=== PATIENT | male | born 1945 | race Caucasian/White ===

== ENCOUNTER 2016-06-22 00:07 | Inpatient (IN) | payer MEDICARE ==
[2016-06-15 10:45] VITALS: BP 144/96; PULSE 60; RESP 16; O2SAT 98
[2016-06-22] VITALS (15 sets, daily range): BP systolic 141–180; BP diastolic 72–115; PULSE 60–61; RESP 12–21; O2SAT 95–100
[~2016-06-22] VITALS: Ht 188 cm; Wt 103.3 kg
[~2016-06-22 00:07] MED LIST: ASPI325T32 PO; ATOR20TA PO; CHOL10008 PO; FLEC100T2 PO; FURO-128 PO; GLUC100020 PO; LOSA50TA3 PO; METO-274 PO; MULT1CAP33 PO; OMEG1000 PO; SAW/1TAB2 PO
[2016-06-22] MEDS ORDERED: Heparin 5,000 Units/500 mL NS Premix IV ONE ×2 (07:29→09:50)
[2016-06-22] MEDS ORDERED: Heparin 1,000 Units/500 mL NS Premix IV ONE ×2 (07:29→09:50)
[2016-06-22 09:37] LABS: BASOPHILS % (AUTO) 0.4 % (0-3); EOSINOPHILS % (AUTO) 1.5 % (0-5); MONOCYTES % (AUTO) 8.3 % (4-12); Mean Corpuscular Hemoglobin 30.2 pg (27.0-35.0); Mean Corpuscular Volume 90.7 fL (81-100); NEUTROPHILS % (AUTO) 64.3 % (40-74); Platelet Count 217 bil/L (150-400)
[2016-06-22 09:48] LABS: INR 1.02 ratio
[2016-06-22] MEDS ORDERED: fentaNYL-PF 50 mCg/mL 2 mL Inj ONE (10:19)
[2016-06-22] MEDS ORDERED: Heparin 1,000 Unit/mL 10 mL Inj ONE (10:35)
[2016-06-22] MEDS ORDERED: Nitroglycerin 50,000 mcg/250 mL D5W Premix IV ONE (10:35)
--- NOTE | 2016-06-22 12:47 | DI95 ---
[address] [address] INTERVENTIONAL CARDIAC CATHETERIZATION PATIENT: HUSSEIN DIAZ : 1945 MR#: [id number] ADMIT: 06/22/2016 JOB ID: [id number] PROCEDURE: Percutaneous intervention on the left anterior descending. INDICATION: Cardiomyopathy. HISTORICAL DETAILS: This gentleman also has history of gastrointestinal bleed. This happened when he was started on Coumadin for his AFib. INTERVENTIONAL REPORT: This gentleman had a mid LAD lesion of about 80% followed by another 60% tandem lesion further down. This was all in a diseased segment of about 30% to 40%. In view of his history of gastrointestinal bleed, I decided to give him a challenge of dual antiplatelet therapy. My initial plan was to do a bare metal stent, but given the fact that this is a disease segment and would have required either two stents or a long area of stenting, I decided to avoid putting overlapping bare metal stents which would be at high risk for restenosis. In view of this, balloon angioplasty was done initially with a 2.0 and then with a 2.5 balloon. Final angiographic results in the mid to proximal LAD were excellent. I would like to give this gentleman a challenge of dual antiplatelet therapy. If he develops gastrointestinal bleeding then his Plavix may be discontinued and he may be left on aspirin alone. Further followup with Dr. Vinson.
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
[2016-06-22] MEDS ORDERED: Ondansetron 2 mg/mL 2 mL Inj IVPUSH PRN (14:10)
[2016-06-22] MEDS ORDERED: MeTOProlol XL 50 mg ER24 Tablet PO ONE (18:00)
[2016-06-23] VITALS (7 sets, daily range): BP systolic 128–174; BP diastolic 73–100; PULSE 58–64; RESP 16–20; O2SAT 95–99
--- NOTE | 2016-06-23 15:01 | PROG NOTE ---
[address] [address] PROGRESS NOTE PATIENT: HUSSEIN DIAZ : 1945 MR#: [id number] ADMIT: 06/22/2016 JOB ID: [id number] DATE: 06/23/2016 SUBJECTIVE: The patient has no complaints this morning. He is tolerating dual antiplatelet therapy without overt bleeding. He is tolerating sotalol with no dysrhythmia and his QT interval duration corrected for rate is stable. OBJECTIVE: Vital signs: Temperature 36.5, blood pressure 128/73 up to 172/95. His pulse is 58 up to 60 beats per minute. He is satting 99% on room air. Well-nourished man, in no apparent distress. Eyes: No scleral icterus. Right eye is blind. Heart: Normal S1, S2. No murmurs. Lungs: Clear to auscultation anteriorly. Abdomen: Soft, positive bowel sounds. No hepatosplenomegaly. Extremities: Warm, well perfused. No clubbing, cyanosis or edema. Skin: No rashes or lesions. CURRENT MEDICATIONS: 1. Losartan 100 mg daily. 2. Aspirin 325 mg daily. 3. Plavix 75 mg daily. 4. Lipitor 20 mg daily. 5. Lasix 40 mg daily. 6. Sotalol 80 mg twice a day. ASSESSMENT AND PLAN: This is a delightful 71-year-old man with history of GI bleed. His has a history of balloon angioplasty yesterday and he is admitted for sotalol load. Flecainide is no longer useful for AFib prevention because of coronary artery disease. He has already received two doses of sotalol and I plan to discharge him on Saturday after his morning dose. If his QT interval corrected for rate remains stable as an outpatient, will organize for him to have a colonoscopy to workup his gastrointestinal bleeding. Plavix and aspirin can be held in anticipation of colonoscopy, and if it turns out that he has no significant lower GI source of bleeding, then we can offer him stenting and dual antiplatelet therapy since his GI bleeding in hindsight probably was hemorrhoid related. Thank you very much for the opportunity to participate in this patient's care.
[2016-06-24] VITALS (10 sets, daily range): BP systolic 118–149; BP diastolic 72–87; PULSE 60–90; RESP 16–20; O2SAT 96–99
[2016-06-24] MEDS: MeTOProlol XL 50 mg ER24 Tablet PO SCH (12:04)
--- NOTE | 2016-06-24 15:13 | PROG NOTE ---
[address] [address] PROGRESS NOTE PATIENT: HUSSEIN DIAZ : 1945 MR#: [id number] ADMIT: 06/22/2016 JOB ID: [id number] DATE: 06/24/2016 CHIEF COMPLAINT: Dizziness. SUBJECTIVE: This morning, the patient had an episode of bizarre behavior where he felt disoriented and started walking out. Then he remembered where he was and went back to his room, and this morning also at 1 a.m. he went into AFib with controlled rate. Labs are ordered and are pending. CURRENT MEDICATIONS: 1. Aspirin 325 mg daily. 2. Toprol-XL 50 mg daily. 3. Sotalol 80 mg twice a day. 4. Amlodipine 5 mg daily. 5. Losartan 100 mg daily. 6. Lasix 40 mg daily. 7. Aspirin 325 mg daily. 8. Plavix 75 mg daily. 9. Lipitor 20 mg daily. PHYSICAL EXAMINATION: Very pleasant, elderly man, no apparent distress. Eyes: No scleral icterus. Neck supple. No lymphadenopathy. No carotid bruits. Heart: Normal S1, S2. No murmurs. Lungs: Clear to auscultation anteriorly. Abdomen soft, positive bowel sounds. No hepatosplenomegaly. Labs orders and are pending. Tele shows AFib with cycle length ranging from 470 msec to 700 msec, so his rate fluctuates between 84 beats per minute up to 127 beats per minute. The patient denies shortness of breath but had an episode of disorientation earlier. He is not on anticoagulation because he had bright red blood per rectum in the past but not recently. He is on dual antiplatelet therapy given recent balloon angioplasty. The patient's CHADS2 VASc score is 4, with points for hypertension, cardiomyopathy, age over 65, and peripheral arterial disease. The plan for this patient is to check his labs to understand what is triggering his event. Will start him on Lovenox shots 100 mg subcu q.12 h., see how he does. Will monitor him closely since he is on dual antiplatelet therapy. Thank you very much for the opportunity to evaluate him.
[2016-06-24 15:23] LABS: Mean Corpuscular Hemoglobin 30.2 pg (27.0-35.0); Mean Corpuscular Volume 90.7 fL (81-100)
[2016-06-24 15:46] LABS: Magnesium 2.2 mg/dL (1.6-2.6)
[2016-06-25] VITALS (8 sets, daily range): BP systolic 119–135; BP diastolic 83–95; PULSE 60–96; RESP 16–20; O2SAT 96–100
--- NOTE | 2016-06-25 06:59 | CS94 ---
[address] [address] DIAGNOSTIC CARDIAC CATHETERIZATION PATIENT: HUSSEIN DIAZ : 1945 MR#: [id number] ADMIT: 06/22/2016 JOB ID: [id number] SERVICE DATE: 06/22/2016 CHIEF COMPLAINT: Shortness of breath. PATIENT PRESENTATION: The patient is a delightful 71-year-old man with paroxysmal atrial fibrillation, relatively reassuring stress test with what to me looks like diaphragmatic attenuation. However, since his pacemaker implant, he developed worsening cardiomyopathy, and he has been referred for cardiac catheterization. PROCEDURE: Following informed consent, patient was prepped and draped in usual sterile fashion. A 6-Maltese sheath was placed in right common femoral artery. Sheath placement was confirmed via femoral angiogram. JL4 and JR4 catheters were used to engage left main and right coronary artery ostia, respectively. Hand injection craniocaudal angulation was used to obtain selective coronary angiograms. All exchanges were performed over a wire. JR4 catheter was advanced to the left ventricle. Left ventricular end-diastolic pressure was recorded. Ventriculogram was deferred by intention to conserve contrast. Then, it was withdrawn into the aorta under continuous hemodynamic monitoring. FINDINGS: Left main is a normal caliber vessel. It gives rise to LAD and circumflex. No obstructive lesions are seen. It gives rise to LAD and circumflex LAD is a normal caliber vessel which gives rise to big bifurcating first diagonal branch, medium second diagonal branch, medium-sized third diagonal branch, small fourth and fifth diagonal branches. There is an 80% mid LAD lesion care home between first and second diagonal branch. Circumflex is a codominant vessel which gives rise to a week very proximal first obtuse marginal branch, very small second obtuse marginal branch, medium third and fourth obtuse marginal branches. No obstructive lesions are seen. Right coronary artery is a medium caliber vessel which gives rise to PDA and posterior lateral branch. No obstructive lesions are seen. Ventriculogram was deferred by intention to conserve contrast. IMPRESSION: 1. 80% mLAD lesion half way between D1 and D2 2. otherwise no significant lesions PLAN: POBA to LAD (prefer not to deploy stent if possible given h/o GIB on OAC) MTDD
[2016-06-25] MEDS: MeTOProlol XL 50 mg ER24 Tablet PO SCH (08:39)
[2016-06-25] MEDS ORDERED: Furosemide 10 mg/mL 4 mL Inj IVPUSH ONE (11:00)
[2016-06-25] MEDS ORDERED: PEG/Electrolytes 4,000 mL Solution PO ONE (12:20)
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
--- NOTE | 2016-06-25 14:07 | PROG NOTE ---
[address] [address] PROGRESS NOTE PATIENT: HUSSEIN DIAZ : 1945 MR#: [id number] ADMIT: 06/22/2016 JOB ID: [id number] DATE: 06/25/2016 CHIEF COMPLAINT: Shortness of breath. SUBJECTIVE: This morning patient reports shortness of breath is stable: He denies pain at the right common femoral artery vascular access site. He does not have any bruit and he has small ecchymosis but no palpable hematoma. Labs reviewed. Vital signs: Temperature 36.4, blood pressure 190/83, 131/92, He has been mostly in AFib but sometimes with RVR at about 110 beats per minute. Satting 98% to 100% on room air. Eyes: No scleral icterus. Heart: Normal S1, S2. Irregularly irregular. No murmurs. Lungs: Clear. Anterior abdomen is soft, positive bowel sounds. Extremities: Show no edema. Device check: I did a limited device check. I turned off the rate response feature while in AMS mode and it seems like the rate has not been escalating inappropriately during physical activity in that setting. ASSESSMENT AND PLAN: This is a 71-year-old man who is fairly complex and has multiple cardiovascular conditions includin. Paroxysmal atrial fibrillation. 2. Sick sinus syndrome, status post [employer] dual chamber ppm 3. Management has been complicated by bright red blood per rectum, on Eliquis. The patient believes it is related to hemorrhoidal bleeding, but he expressed to me that the amount of blood was significant and he was afraid to continue using his medication. 4. Cardiomyopathy. Cardiomyopathy was recent identified. Echo was normal in 2013, and most recent ejection fraction was 30% to 40%. 5. Coronary artery disease--newly diagnosed during this admission. Left heart cath performed on June 22, 2016. Unfortunately, it demonstrated a 80% mid LAD lesion treated with balloon angioplasty. Stent placement was deliberately deferred because I was not convinced the patient could tolerate dual antiplatelet therapy. Basically, all his treatments are on hold. Anticoagulation for stroke prevention in the setting of persistent atrial fibrillation is on hold. Cardioversion for his symptoms of shortness of breath for AFib is on hold. Treatment of his coronary artery disease is on hold, all because we are not convinced he can handle dual antiplatelet therapy and we cannot be convinced that he can handle anticoagulation. Therefore, I recommend for this patient to undergo inpatient colonoscopy to rule out significant source of gastrointestinal lower GI bleeding. The good news is that he has not had anemia and I hope we can reassure him and take away his fear and make it a safe experience for him to take anticoagulation medication. I gave signout to my partner, Dr. Moran, and he voiced understanding. I appreciate Dr. Moran expertise. If it turns out he has no significant digestive pathology, I would recommend for him to start Eliquis for stroke prevention in the setting of persistent atrial fibrillation, and depending on how he does, we can offer him ISREAL followed by cardioversion. Of course, he has not been on Eliquis as an outpatient. As far as coronary artery disease, this patient is not a good candidate for stenting because we are not convinced he can safely handle the antiplatelet therapy. I hope investigation for possible lower GI bleed pathology will shed some light on his eligibility for those medications. If there is no source for lower GI bleeding other than hemorrhoids, I would recommend for him to start aspirin as an outpatient. Will have a discussion about adding Plavix. Cardiomyopathy: Continue Toprol-XL 50 mg daily and continue losartan 100 mg daily. I gave him Lasix 40 mg IV this morning. Thank you very much for the opportunity to evaluate him. BUDDY
[2016-06-26] VITALS (7 sets, daily range): BP systolic 101–137; BP diastolic 58–86; PULSE 59–64; RESP 16; O2SAT 96–99
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
--- NOTE | 2016-06-26 08:35 | ENDO ---
[address] [address] ENDOSCOPY PROCEDURE PATIENT: HUSSEIN DIAZ : 1945 MR#: [id number] ADMIT: 06/22/2016 JOB ID: [id number] DATE: 06/26/2016 PRIMARY PROVIDER: Pollo Calix M.D. PROCEDURE: Colonoscopy with hot snare polypectomy. INDICATIONS: A 71-year-old male with multiple cardiac issues including paroxysmal atrial fibrillation with a need for possible long-term anticoagulation. He also has coronary artery disease and possible coronary intervention is pending as well. He has been experiencing hematochezia that he believes is related to hemorrhoids. On Eliquis, he would have some bleeding. He has not had any significant bleeding since converting over to aspirin. EQUIPMENT: Q-Layer 180 AL. SEDATION: Monitored anesthesia as provided by Dr. Ky Jay. COMPLICATIONS: None identified. BOWEL PREPARATION: Fair, adequate examination. PROCEDURAL INFORMATION: After the risks and benefits were explained, written and verbal informed consent was obtained. The patient was brought into the endoscopy suite and placed into the left lateral decubitus position. Sedation was achieved using the above-stated medications with the addition of oxygen via nasal cannula. A digital rectal examination was accomplished, and apart from some mild internal and external nonbleeding, nonthrombosed hemorrhoids, no other significant pathology was appreciated. The scope was introduced into the rectum and advanced under direct visualization to the cecum as identified by the appendiceal orifice and ileocecal valve. The scope was slowly withdrawn to carefully examine the mucosa for any defects or lesions. Retroflexed views were accomplished in the rectum. The colon was decompressed. The scope removed from the patient who tolerated the procedure well. FINDINGS: The patient had generous internal hemorrhoidal cushions with a couple of areas of scattered focal erythema. No active bleeding. There was no proctitis. No colitis throughout. Some scattered mild diverticulosis in the left colon. In the transverse, there was an approximately 6 mm sessile polyp removed with hot snare (magnet was placed over the patient's pacemaker for the maneuver). No other pathology was appreciated throughout. Retroflexed views within the rectum demonstrated generous internal hemorrhoidal cushions. ENDOSCOPIC DIAGNOSES: 1. Internal/external nonbleeding, nonthrombosed hemorrhoids. 2. Mild diverticulosis. 3. Small colon polyp. RECOMMENDATIONS: 1. Await histopathology. 2. At present I do not see a contraindication for coronary intervention. Should recurrent hematochezia occur, then I would recommend surgical examination for possible banding on a p.r.n. basis.
--- NOTE | 2016-06-26 10:06 | PCM.PNCARD ---
Subjective Date of service June 26, 2016 Constitutional: Denies: Sweats ENT: Denies: Ear Pain Eyes: Denies: Blurred Vision, Conjunctive Inflammation Cardiovascular: Reports: Irregular Heart Rate, Denies: Chest Pain, SOB on Exertion, SOB while laying flat Neurological: Denies: Confusion, Dizziness Endocrine: Reports: Blood Glucose Review Exam Vital Signs Vital Sign - Last Date Time Temp Pulse Resp B/P Pulse Ox O2 Delivery O2 Flow Rate FiO2 06/26/16 09:09 36.4 59 137/86 99 Room Air 06/26/16 08:26 16 Intake and Output 06/25/16 06/25/16 06/26/16 Cumulative From/Thru 15:00 23:00 07:00 06/15/16 10:45 - 06/25/16 20:22 Intake Total 700 ml 4260 ml Output Total 360 ml 6710 ml Balance 340 ml -2450 ml Intake Oral 700 ml 3860 ml IV Total 400 ml Output Urine Total 360 ml 6710 ml # Voids 1 6 # Bowel Movements 1 General: Pleasant Cooperative Skin: Warm & dry to touch Chest: Clear auscultation w/o rales/wheeze Cardiac: Regular rhythm Neurological: Alert & oriented Lab and Diagnostics Labs CBC Test 06/22/16 09:30 06/24/16 15:15 Neutrophils (%) (Auto) 64.3% (40-74) Lymphocytes (%) (Auto) 25.3% (14-46) Monocytes (%) (Auto) 8.3% (4-12) Eosinophils (%) (Auto) 1.5% (0-5) Basophils (%) (Auto) 0.4% (0-3) White Blood Count 6.7th/mm3 (3.8-10.1) Red Blood Count 5.36mil/mm3 (4.40-5.80) Hemoglobin 16.2g/dL (13.8-17.2) Hematocrit 48.6% (41.0-50.0) Mean Corpuscular Volume 90.7fL (81-100) Mean Corpuscular Hemoglobin 30.2pg (27.0-35.0) Mean Corpuscular Hemoglobin Concent 33.3% (32.0-37.0) Red Cell Distribution Width 14.2% (12.3-15.4) Platelet Count 225bil/L (150-400) CMP Test 06/24/16 15:15 Sodium Level 140mEq/L Potassium Level 4.1mEq/L Chloride Level 102mEq/L Carbon Dioxide Level 25mmol/L Blood Urea Nitrogen 21mg/dL Creatinine 1.12mg/dL Estimat Glomerular Filtration Rate 68mL/min Glucose Level 96mg/dL Calcium Level 8.8mg/dL Magnesium Level 2.2mg/dL Result Diagram: 06/24/16 1515 06/24/16 1515 12-lead ECG EKGs have shown nothing above 523 msec QTc intervals. He has intermittent afib and atrial pacing. Assessment & Plan Problems: (1) Chronic left ventricular systolic dysfunction Plan: HFrEF probably 2/2 CAD/afib with RVR. Patient is much better rate control. Patient also had PBA to the LAD with good results. Euvolemic on examination. He will need to be discharged on Toprol XL and ARB for his HF. He is also taking a loop diuretic (furosemide). These medications might need to be titrated as outpatient. He will need a repeat Echo as outpatient to re- evaluate his LVEF. Discharge meds: Sotalol 80 mg BID - needs Rx for 2 months at a local pharmacy. Toprol XL 1/2 tablet of 50 mg twice a day Atorvastatin 20 mg once at betime although he should be on at least 40 mg qhs but I will let Dr. Vinson titrate this as outpatient. Plavix 75 mg once a day - needs Rx for 2 months at a local pharmacy Losartan 100 mg once a day Amlodipine 5 mg once a day Furosemide 40 mg once a day Needs to f/u with Dr. Vinson in 3-4 weeks to decide if PCI should be pursued or DCCV if he is able to tolerate both Plavix and Eliquis. If he starts to bleed then he should stop Eliquis and continue with Plavix. Status: Chronic ICD Code: I51.9 (2) PAF (paroxysmal atrial fibrillation) Plan: Better control with sotalol on board. Toprol XL reduced since he has started taking sotalol. Patient will go on Eliquis 5 mg BID and restart Clopidogrel 75 mg once a day. I will recommend to hold off on ASA for now since he has had prior hx of rectal bleeding probably 2/2 bleeding hemorrhoids. Onset Date: 03/15/2015 Status: Chronic ICD Code: I48.0 (3) CAD (coronary artery disease) Qualifiers: Coronary Disease-Associated Artery/Lesion type: cheesh-na artery [place] vs. transplanted heart: cheesh-na heart Associated angina: with other forms of angina Qualified Code: I25.118 - Atherosclerotic heart disease of cheesh-na coronary artery with other forms of angina pectoris Plan: S/P PBA to LAD with excellent results. Typically he will need ASA/ Plavix but given his hx of bleeding, I will hold off on ASA and just have him on Plavix since he will restart taking Eliquis. Patient is also on statin and ARB for additional risk factor modification. Status: Chronic ICD Code: I25.10 (4) Hemorrhoids Status: Chronic ICD Code: K64.9 (5) SSS (sick sinus syndrome) Onset Date: 03/15/2015 Status: Acute ICD Code: I49.5 (6) Tachy-manjeet syndrome Onset Date: 03/15/2015 Status: Chronic ICD Code: I49.5 Time spent 30 minutes Raghavendra Moran MD June 26, 2016 10:06
--- NOTE | 2016-06-26 11:33 | PCM.DIMED ---
Discharge Instructions Date of Service June 26, 2016 Dates of Hospitalization June 22, 2016 at 13:37 Discharge Diagnosis Discharge Diagnosis Paroxysmal afib CAD Diet Heart Healthy Activity Other (do not lift anything heavier than 20 lbs for 3-4 days.) Call your provider Fever or Chills, Shortness of breath, Bleeding, Chest pain, Vomitting, Excessive diarrhea, Weakness (unilateral) Patient Instructions Follow-up Provider: Marlin Vinson MD Follow-up with PCP in: 1 week Raghavendra Moran MD June 26, 2016 11:33
[2016-06-26] MEDS ORDERED: LOSA100T3 PO (11:42)
[2016-06-26] MEDS ORDERED: NITR0.4T SL (11:42)
[2016-06-26] MEDS ORDERED: ATOR20TA65 PO (11:42)
[2016-06-26] MEDS ORDERED: AMLO5TAB2 PO (11:42)
[2016-06-26] MEDS ORDERED: BET80 PO (11:42)
[2016-06-26] MEDS ORDERED: METO25TA99 PO (11:42)
[2016-06-26] MEDS ORDERED: CLOP75TA28 PO (11:43)
[2016-06-26] MEDS ORDERED: APIX5TAB PO (11:43)
[2016-06-26] MEDS ORDERED: Propofol 10,000 mCg/mL 20 mL Inj ONE (13:02)
--- NOTE | 2016-06-26 16:01 | PCM.ANEP1 ---
Post Anesthesia Phase 1 PACU Phase 1 Assessment Date of Service: June 26, 2016 Vital Signs Vital Signs Date Time Temp Pulse Resp B/P Pulse Ox O2 Delivery O2 Flow Rate FiO2 06/26/16 11:10 61 06/26/16 09:09 36.4 59 137/86 99 Room Air 06/26/16 08:26 64 16 114/77 98 Room Air 06/26/16 08:18 60 16 111/69 97 Room Air 06/26/16 08:09 60 16 101/58 96 Room Air Anesthetic Administered: TIVA Level of Alertness: Awake, talking OACMPO's with Equal Strength: Yes Pain: No Nausea or Vomiting: No Cardiovascular Function and Hy: Yes Oxygen Delivery: Room Air Lungs: Clear to Auscultation, Normal Air Movement Dermatome Level: Full Sensation Complications: No Follow up Care: No Ky Jay MD June 26, 2016 16:00
[2016-06-26] MEDS ORDERED: MeTOProlol XL 25 mg ER24 Tablet PO SCH (20:30)
--- NOTE | 2016-06-27 16:20 | PATH ---
SURGICAL PATHOLOGY Attending Physician:Dain Mueller CASE STATUS: Signed Out PATIENT NAME: HUSSEIN DIAZ PID: [id number] : 1945 DATE COLLECTED:06/26/2016 16:58 SPECIMEN: Colon, Biopsy CLINICAL HISTORY: 1). TRANSVERSE COLON POLYP FINAL DIAGNOSIS: Transverse Colon, Polyp, Biopsy: Portions of tubular adenoma x3; negative for high-grade dysplasia. ICD10: K63.5 GROSS DESCRIPTION: The specimen is received in one formalin filled container labeled with the patient's name, sublabeled "transverse colon polyp" and consists of 3 portions of tissue which aggregate to 0.3 x 0.3 x 0.2 CM. The specimen is entirely submitted in one cassette. 06/26/2016 [facility] ICD-9 CODES: CPT CODES: 1: 74629 Electronically Signed Out Collette Hercules MD [facility] Pathology [facility] [address], [place] [address] Technical component performed at [facility], [address] [place] [address] Ave[address], [address]
== END 2016-06-26 13:03 | disposition home or self-care (01) | DRG 251 ==
LOC: SOUO 00:07 → PCC 13:37
PROVIDERS: ADMIT Internal Medicine; ATTEND Internal Medicine
PROC: 02713ZZ Dilation of Coronary Artery, Two Arteries, Percutaneous Approach (ICD-10-PCS; principal; 2016-06-22)
PROC: 4A023N7 Measurement of Cardiac Sampling and Pressure, Left Heart, Percutaneous Approach (ICD-10-PCS; 2016-06-22)
PROC: B2111ZZ Fluoroscopy of Multiple Coronary Arteries using Low Osmolar Contrast (ICD-10-PCS; 2016-06-22)
PROC: 0DBL8ZX Excision of Transverse Colon, Via Natural or Artificial Opening Endoscopic, Diagnostic (ICD-10-PCS; 2016-06-26)
DX: I48.0 Paroxysmal atrial fibrillation (principal); I25.10 Atherosclerotic heart disease of native coronary artery without angina pectoris; I42.9 Cardiomyopathy, unspecified; I10 Essential (primary) hypertension; D12.3 Benign neoplasm of transverse colon; E78.5 Hyperlipidemia, unspecified; K64.8 Other hemorrhoids; G47.33 Obstructive sleep apnea (adult) (pediatric); Z79.82 Long term (current) use of aspirin; Z95.0 Presence of cardiac pacemaker